=== PATIENT | male | born 1945 | race Two or more races ===

== ENCOUNTER 2018-08-25 05:09 | Day surgery (SDC) | payer OTHER ==
[2018-08-24 09:50] VITALS: BMI 36.8
[2018-08-25] MEDS ORDERED: PROPOFOL 20 ML ONE (12:06)
--- NOTE | 2018-08-25 12:35 | HP ---
History & Physical Update - History History: No Change - Physical Physical: No Change - Assessment Assessment: No Change - Plan Plan: No Change
--- NOTE | 2018-08-25 12:37 | OP ---
Operative Note - Note: Operative Date: 08/25/18 Pre-Operative Diagnosis: prostate cancer Operation: prostate cryoablation and cystoscopy Post-Operative Diagnosis: Same as Pre-op Surgeon: Jason Schuster Anesthesiologist/MILK PROCESSING WORKER: Jarred Carolina Anesthesia: General Estimated Blood Loss (mls): 0 Drains & Tubes with Location: 18 fr walsh Operative Report Dictated: Yes
[2018-08-25] MEDS ORDERED: ceFAZolin SODIUM 1 GM VIAL ONE (13:29)
[2018-08-25] MEDS ORDERED: DESFLURANE GAS 240 ML BOTTLE IH ONE (14:17)
[2018-08-25] MEDS ORDERED: ONDANSETRON 4 MG/2 ML VIAL IVPUSH PRN (16:07)
[2018-08-25] MEDS ORDERED: oxyCODONE HCL 5 MG TABLET PO PRN (16:07)
[2018-08-25] MEDS ORDERED: ACETAMINOPHEN INJECTION 100 ML IVPB ONE (16:13)
[2018-08-25 16:57] VITALS: BP 152/62; PULSE 71; TEMP 97.9
[2018-08-25] MEDS ORDERED: ONDANSETRON 4 MG/2 ML VIAL IVPUSH ONE (17:16)
[2018-08-25] MEDS ORDERED: ONDANSETRON 4 MG/2 ML VIAL ONE (17:18)
[2018-08-25] MEDS ORDERED: ACETAMINOPHEN 1000 MG/100 ML VIAL (NON FORMULARY) IVPB ONE (17:22)
--- NOTE | 2018-08-26 09:55 | OP ---
DATE OF OPERATION: 08/25/2018 PREOPERATIVE DIAGNOSIS: Prostate cancer. POSTOPERATIVE DIAGNOSIS: Prostate cancer. PROCEDURE PERFORMED: Prostate cryoablation and cystoscopy. SURGEON: Jason Velasquez M.D. OIL CHANGER: None. ANESTHESIA: General via laryngeal mask. ANESTHESIOLOGIST: Jarred Carolina CRNA SPECIMENS: None. CULTURES: None. DRAINS: An 18-Turkmen Antony catheter. ESTIMATED BLOOD LOSS: None. COMPLICATIONS: None. DESCRIPTION OF PROCEDURE: The patient was brought into the operating room and placed on the operating table in the supine position. After the administration of general anesthesia via laryngeal mask, intravenous antibiotics were administered. Sequential compression devices were placed. The patient was placed in the dorsal lithotomy position. The perineum was shaved first. Then the perineum and genitals were prepped and draped in the usual sterile manner. A transrectal ultrasound probe was placed within the rectum. Transrectal ultrasound was done. An 18-Turkmen Antony catheter was placed per urethra and 10 mL placed in the balloon. The bladder was filled with 400 mL of sterile normal saline. The plan was devised for the cryoablation. Then 6 probes were placed, 2 temperature sensors in the external sphincter and Denonvilliers' fascia. Measurements were taken. The probes were set to the appropriate lengths. The Antony catheter was removed. Flexible cystoscopy was performed. This demonstrated normal anterior urethra. The prostatic urethra demonstrated moderate bilobar occlusion. The bladder was entered and fully inspected. There were no foreign bodies, tumors, stones or inflammation. Both ureteral orifices were in their usual location. The scope was retroflexed, and there was no perforation of the bladder with the probes. A Super Stiff guidewire was inserted. The cystoscope was removed. Now the urethral warmer was inserted over the guidewire. Urethral warming was started and prostate cryoablation was done with 2 freeze-thaw cycles, with excellent ablation. At the end of the procedure, the urethral warmer was left in place for an additional 5 minutes. The probes were removed. The 18-Turkmen Antony catheter was replaced, 10 mL placed in the balloon. It was placed to gravity drainage, and returned clear. The patient tolerated the procedure well and was transferred to the recovery room in stable condition. JASON VELASQUEZ M.D. VERO/[id number]
== END 2018-08-25 18:38 | disposition home or self-care (01) ==
LOC: JASU-SURG 05:09
PROVIDERS: ATTEND Urology
PROC: 0V503ZZ Destruction of Prostate, Percutaneous Approach (ICD-10-PCS; principal; 2018-08-25 12:00)
DX: C61 Malignant neoplasm of prostate (principal)
CPT/HCPCS: 55873; C2618; 94760; J0131